=== PATIENT | male | born 1955 | race Caucasian/White ===

== ENCOUNTER 2021-03-24 15:35 | Emergency (ER) | payer BC, MEDICARE ==
[~2021-03-24 15:35] MED LIST: TYLENOL WITH C1 EACH PO
[2021-03-24 16:25] LABS: HEMOGLOBIN 12.8 gm/dl (14.0-17.5); RED BLOOD COUNT 3.97 M/UL (4.20-5.50); WHITE BLOOD COUNT 12.2 K/UL (4.5-11.0)
[2021-03-24 16:32] LABS: BUN/CREATININE RATIO 14 (0-10)
== END 2021-03-24 15:42 | disposition left against medical advice (07) ==
LOC: ER1 15:35
PROVIDERS: Student in an Organized Health Care Education/Training Program
DX: R29.898 Other symptoms and signs involving the musculoskeletal system (principal); I10 Essential (primary) hypertension; I25.10 Atherosclerotic heart disease of native coronary artery without angina pectoris; Z20.822 Contact with and (suspected) exposure to COVID-19; Z86.73 Personal history of transient ischemic attack (TIA), and cerebral infarction without residual deficits
CPT/HCPCS: 70450; 73562; 80053; 82550; 82553; 83874; 84484; 85025; 85610; 85730; 93005; 93971; 99285; U0002

== ENCOUNTER → 2021-03-25 | Outpatient (CLI) | payer BC, MEDICARE | LOC: MRI 15:00 | DX: R53.1 Weakness (principal) | CPT/HCPCS: 70551 ==